=== PATIENT | male | born 1935 | race Caucasian/White ===

== ENCOUNTER 2018-04-25 10:53 | Inpatient (IN) | payer OTHER ==
[~2018-04-25] VITALS: Ht 177.8 cm; Wt 62.7 kg
[2018-04-25 12:08] LABS: Hematocrit 32.8 % (41.0-53.0); Hemoglobin 11.1 g/dL (13.5-17.5); Mean Corpuscular Hemoglobin 32.3 pg (28.0-32.0); Mean Corpuscular Hgb Conc. 33.8 g/dL (32.0-36.0); Mean Corpuscular Volume 95.6 fL (80.0-100.0); Platelet Count (auto) 271 10^3/uL (140-450); Red Blood Cells 3.43 10^6/uL (4.5-5.90); Red Cell Distribution Width 16.6 % (11.8-14.3); White Blood Cell 5.8 10^3/uL (4.4-10.8)
[2018-04-25 12:12] LABS: Basophils % (manual) 0 (0.0-2.0); Blast Cells 0; Eosinophils % (manual) 0 (0-7); Metamyelocytes % 0; Myelocytes % 0; Promyelocytes % 0; Reactive Lymphocytes 0
[2018-04-25 12:24] LABS: Band Neutrophils % (manual) 1; Lymphocytes % (manual) 16 (10.0-50.0); Monocytes % (manual) 16 (0-12)
[2018-04-25 12:43] LABS: Alanine Aminotransferase 204 U/L (16-61); Albumin 2.7 g/dL (3.4-5.0); Alkaline Phosphatase 1062 U/L (45-117); Anion Gap 10 (5-15); Aspartate Aminotransferase 205 U/L (15-37); BUN/Creatinine Ratio 16.4; Bilirubin, Total 29.8 mg/dL (0.2-1.0); Blood Urea Nitrogen 21 mg/dL (7-18); Carbon Dioxide 21 mmol/L (21-32); Chloride 102 mmol/L (98-107); GFR African American 69 mL/min; GFR Non-African American 57 mL/min; Glucose 88 mg/dL (74-106); Magnesium 2.6 mg/dL (1.6-2.6); Potassium 3.7 mmol/L (3.5-5.1); Sodium 133 mmol/L (136-145)
[2018-04-25 13:05] LABS: Total Protein 6.5 g/dL (6.4-8.2)
[2018-04-25] MEDS ORDERED: LEVOFLOXACIN 500MG 100 ML IV ONE (13:30)
[2018-04-25] MEDS ORDERED: ALBUTEROL SULF 2.5 MG/0.5ML(0.5%) NEB SOLN NEB PRN (15:00)
[2018-04-25] MEDS ORDERED: LACTULOSE 20Gm/30ML SOLN PO PRN (15:00)
[2018-04-25] MEDS ORDERED: LORazepam 0.5 MG TAB PO PRN (15:00)
[2018-04-25] MEDS ORDERED: ONDANSETRON HCL 4 MG/2 ML VIAL IV PRN (15:00)
[2018-04-25] MEDS ORDERED: NITROGLYCERIN 0.4 MG SL TAB SL PRN (15:00)
[2018-04-25] MEDS ORDERED: MORPHINE SULFATE 4 MG/ML SYR/VIAL IV PRN (15:00)
[2018-04-25 15:26] VITALS: BP 127/72
[2018-04-25 15:31] LABS: Partial Thromboplastin Time 29.6 sec (23.78-33.04); Prothrombin Time 10.7 sec (9.27-12.13)
[2018-04-25 15:46] LABS: Amylase 19 U/L (25-115); Lipase 50 U/L (73-393)
[2018-04-25] MEDS: MORPHINE SULFATE 4 MG/ML SYR/VIAL IV PRN (16:20)
[2018-04-25 17:05] VITALS: BP 146/87
[2018-04-25 17:10] VITALS: BP 146/87
[2018-04-25] MEDS ORDERED: chlordiazePOXIDE HCL 25 MG CAP PO PRN (17:15)
[2018-04-25] MEDS ORDERED: THIAMINE 100mg/ml INJ (200mg/2ml VIAL) IV ONE (17:15)
[2018-04-25] MEDS: ALBUTEROL SULF 2.5 MG/0.5ML(0.5%) NEB SOLN NEB SCH (18:00)
[2018-04-25 21:57] VITALS: BP 149/70
[2018-04-25] MEDS: TEMAZEPAM 15 MG CAP PO PRN (22:28)
[2018-04-26] MEDS: ALBUTEROL SULF 2.5 MG/0.5ML(0.5%) NEB SOLN NEB SCH ×4 (01:00→19:32)
[2018-04-26] MEDS: MORPHINE SULFATE 4 MG/ML SYR/VIAL IV PRN ×5 (04:50→22:02)
[2018-04-26 05:25] LABS: Urine Amorphous Crystal FEW /hpf (None Seen); Urine Bacteria FEW /hpf (None Seen); Urine Blood Negative /uL (Negative); Urine Mucus FEW (None Seen); Urine Specific Gravity 1.013 (1.001-1.035); Urine WBC 2 /hpf (0 - 3)
[2018-04-26 05:44] VITALS: BP 169/90
[2018-04-26 06:10] VITALS: BP 136/82
[2018-04-26 06:37] LABS: Hematocrit 31.5 % (41.0-53.0); Hemoglobin 11.1 g/dL (13.5-17.5); Mean Corpuscular Hemoglobin 32.9 pg (28.0-32.0); Mean Corpuscular Hgb Conc. 35.1 g/dL (32.0-36.0); Mean Corpuscular Volume 93.8 fL (80.0-100.0); Platelet Count (auto) 243 10^3/uL (140-450); Red Blood Cells 3.36 10^6/uL (4.5-5.90); Red Cell Distribution Width 16.4 % (11.8-14.3); White Blood Cell 6.2 10^3/uL (4.4-10.8)
[2018-04-26 06:41] LABS: Basophils % (manual) 0 (0.0-2.0); Blast Cells 0; Eosinophils % (manual) 0 (0-7); Metamyelocytes % 0; Myelocytes % 0; Promyelocytes % 0; Reactive Lymphocytes 0
[2018-04-26 07:12] LABS: Cholesterol 384 mg/dL (< 200); HDL Cholesterol 6 mg/dL (40-59); LDL Cholesterol 399 mg/dL (< 100); Triglycerides 183 mg/dL (< 150)
[2018-04-26] MEDS: LEVOFLOXACIN 500MG 100 ML IV SCH (08:00)
[2018-04-26] MEDS: PANTOPRAZOLE 40 MG TAB PO SCH (08:00)
[2018-04-26] MEDS: THIAMINE 100mg/ml INJ (200mg/2ml VIAL) IV SCH (08:01)
[2018-04-26 08:26] LABS: Band Neutrophils % (manual) 3; Lymphocytes % (manual) 8 (10.0-50.0); Monocytes % (manual) 19 (0-12)
[2018-04-26 09:00] VITALS: BP 160/88
[2018-04-26 13:00] VITALS: BP 140/82
[2018-04-26 17:00] VITALS: BP 142/68
[2018-04-26] MEDS ORDERED: FAM20T PO (21:20)
[2018-04-26] MEDS ORDERED: DULO20CA PO (21:32)
[2018-04-26] MEDS ORDERED: TEMA15CA91 PO (21:32)
[2018-04-26] MEDS ORDERED: PERCOT PO (21:32)
[2018-04-26] MEDS ORDERED: MORP60TA25 PO (21:32)
[2018-04-26] MEDS ORDERED: ASPI81TA27 PO (21:32)
[2018-04-26] MEDS ORDERED: CELE100C82 PO (21:32)
[2018-04-26] MEDS ORDERED: TRAZ50TA2 PO (21:32)
[2018-04-26] MEDS ORDERED: SENN-152 PO (21:32)
[2018-04-26 21:48] VITALS: BP 138/61
[2018-04-26] MEDS ORDERED: AMLO5TAB13 PO (22:05)
[2018-04-26] MEDS ORDERED: FINA5TAB4 PO (22:05)
[2018-04-26] MEDS ORDERED: MAGN400T5 PO (22:05)
[2018-04-26] MEDS: TEMAZEPAM 15 MG CAP PO PRN (22:29)
[2018-04-27] MEDS: ALBUTEROL SULF 2.5 MG/0.5ML(0.5%) NEB SOLN NEB SCH ×4 (00:09→18:05)
[2018-04-27 04:57] VITALS: BP 146/75
[2018-04-27 08:20] VITALS: BP 159/77
[2018-04-27 09:28] VITALS: BP 159/77
[2018-04-27 09:46] LABS: Hepatitis B Surface Antibody Negative
[2018-04-27] MEDS: PANTOPRAZOLE 40 MG TAB PO SCH (09:49)
[2018-04-27] MEDS: THIAMINE 100mg/ml INJ (200mg/2ml VIAL) IV SCH (09:49)
[2018-04-27] MEDS: LEVOFLOXACIN 500MG 100 ML IV SCH (09:49)
[2018-04-27 10:22] LABS: Hepatitis A Total Antibody Negative
[2018-04-27 11:35] VITALS: BP 154/76
[2018-04-27 11:49] LABS: Hepatitis C Antibody Negative (Negative)
[2018-04-27 11:54] LABS: Hepatitis B Core Total AB Negative
[2018-04-27] MEDS ORDERED: amLODIPine BESYLATE 5 MG TAB PO ONE (13:00)
[2018-04-27] MEDS: traMADol HCL 50 MG TAB PO PRN ×2 (13:40→20:25)
[2018-04-27] MEDS: SODIUM CHLORIDE 0.9% 1,000 ML IV SCH (13:41)
[2018-04-27 15:11] LABS: Albumin 2.2 g/dL (3.4-5.0); BUN/Creatinine Ratio 11.8; Calcium 9.1 mg/dL (8.5-10.1)
[2018-04-27 15:23] LABS: Bilirubin, Total 30.4 mg/dL (0.2-1.0)
[2018-04-27] MEDS ORDERED: IOHEXOL 300 MG/ML 100ML BOTTLE IJ ONE (15:36)
[2018-04-27 15:56] LABS: Total Protein 6.1 g/dL (6.4-8.2)
[2018-04-27 16:28] VITALS: BP 154/77
[2018-04-27] MEDS: HYDROmorphone HCL 2 MG/ML VL IV PRN (18:06)
[2018-04-27 20:47] LABS: Hepatitis B Surface Antigen Negative (Negative)
[2018-04-27 22:00] VITALS: BP 144/67
[2018-04-27] MEDS: TEMAZEPAM 15 MG CAP PO PRN (22:21)
[2018-04-28] VITALS (7 sets, daily range): BP systolic 129–155; BP diastolic 76–81
[2018-04-28] MEDS: HYDROmorphone HCL 2 MG/ML VL IV PRN ×3 (00:08→21:56)
[2018-04-28] MEDS: traMADol HCL 50 MG TAB PO PRN ×3 (03:52→17:03)
[2018-04-28 05:45] LABS: Hemoglobin 10.5 g/dL (13.5-17.5); Mean Corpuscular Hemoglobin 32.7 pg (28.0-32.0); Mean Corpuscular Hgb Conc. 35.1 g/dL (32.0-36.0); Platelet Count (auto) 271 10^3/uL (140-450); Red Blood Cells 3.23 10^6/uL (4.5-5.90); Red Cell Distribution Width 17.1 % (11.8-14.3); White Blood Cell 7.3 10^3/uL (4.4-10.8)
[2018-04-28 05:48] LABS: Basophils % (manual) 0 (0.0-2.0); Blast Cells 0; Eosinophils % (manual) 0 (0-7); Metamyelocytes % 0; Myelocytes % 0; Promyelocytes % 0; Reactive Lymphocytes 0
[2018-04-28 06:00] LABS: Albumin 2.1 g/dL (3.4-5.0); BUN/Creatinine Ratio 14.4; Calcium 8.5 mg/dL (8.5-10.1); Potassium 3.2 mmol/L (3.5-5.1)
[2018-04-28 06:15] LABS: Bilirubin, Total 28.4 mg/dL (0.2-1.0)
[2018-04-28 06:25] LABS: Band Neutrophils % (manual) 3; Lymphocytes % (manual) 7 (10.0-50.0); Monocytes % (manual) 13 (0-12)
[2018-04-28 06:36] LABS: Total Protein 5.4 g/dL (6.4-8.2)
[2018-04-28] MEDS: SODIUM CHLORIDE 0.9% 1,000 ML IV SCH (07:02)
[2018-04-28] MEDS: ALBUTEROL SULF 2.5 MG/0.5ML(0.5%) NEB SOLN NEB SCH ×4 (07:11→19:18)
[2018-04-28] MEDS: PANTOPRAZOLE 40 MG TAB PO SCH (09:12)
[2018-04-28] MEDS: THIAMINE 100mg/ml INJ (200mg/2ml VIAL) IV SCH (09:13)
[2018-04-28] MEDS: amLODIPine BESYLATE 5 MG TAB PO SCH (09:13)
[2018-04-28] MEDS: LEVOFLOXACIN 500MG 100 ML IV SCH (09:17)
[2018-04-28] MEDS ORDERED: METOCLOPRAMIDE HCL 5MG/ml INJ 2ml VIAL IV ONE (10:45)
[2018-04-28] MEDS ORDERED: POTASSIUM CHL 20 Meq TABLET PO ONE (11:30)
[2018-04-28 13:42] LABS: INR 1.04 (0.9-1.15); Partial Thromboplastin Time 29.1 sec (23.78-33.04); Prothrombin Time 11.1 sec (9.27-12.13)
[2018-04-28] MEDS ORDERED: IOHEXOL 300 MG/ML 100ML BOTTLE IJ ONE (14:24)
[2018-04-28] MEDS: TEMAZEPAM 15 MG CAP PO PRN (22:39)
[2018-04-29] MEDS: ALBUTEROL SULF 2.5 MG/0.5ML(0.5%) NEB SOLN NEB SCH ×4 (00:01→19:36)
[2018-04-29] MEDS: SODIUM CHLORIDE 0.9% 1,000 ML IV SCH ×3 (00:10→18:30)
[2018-04-29 05:00] VITALS: BP 140/79
[2018-04-29 06:48] LABS: Albumin 2.1 g/dL (3.4-5.0); Calcium 8.6 mg/dL (8.5-10.1); Potassium 3.1 mmol/L (3.5-5.1)
[2018-04-29 07:05] LABS: Bilirubin, Total 29.1 mg/dL (0.2-1.0)
[2018-04-29 07:21] LABS: Total Protein 5.4 g/dL (6.4-8.2)
[2018-04-29 09:00] VITALS: BP 140/71
[2018-04-29] MEDS: PANTOPRAZOLE 40 MG TAB PO SCH (10:00)
[2018-04-29] MEDS: THIAMINE 100mg/ml INJ (200mg/2ml VIAL) IV SCH (10:46)
[2018-04-29] MEDS: LEVOFLOXACIN 500MG 100 ML IV SCH (10:46)
[2018-04-29] MEDS: amLODIPine BESYLATE 5 MG TAB PO SCH (10:47)
[2018-04-29] MEDS ORDERED: POTASSIUM CHL 20 Meq TABLET PO ONE (11:15)
[2018-04-29 13:00] VITALS: BP 153/84
[2018-04-29] MEDS: traMADol HCL 50 MG TAB PO PRN (13:59)
[2018-04-29 16:52] VITALS: BP 153/72
[2018-04-29] MEDS: HYDROmorphone HCL 2 MG/ML VL IV PRN ×2 (17:32→21:31)
[2018-04-29 22:00] VITALS: BP 148/70
[2018-04-29] MEDS: TEMAZEPAM 15 MG CAP PO PRN (22:47)
[2018-04-30] MEDS: ALBUTEROL SULF 2.5 MG/0.5ML(0.5%) NEB SOLN NEB SCH ×4 (01:24→18:39)
[2018-04-30 04:00] VITALS: BP 140/77
[2018-04-30] MEDS: SODIUM CHLORIDE 0.9% 1,000 ML IV SCH ×2 (04:39→13:36)
[2018-04-30] MEDS: HYDROmorphone HCL 2 MG/ML VL IV PRN ×4 (04:41→23:27)
[2018-04-30 05:35] LABS: Hematocrit 32.2 % (41.0-53.0); Hemoglobin 11.3 g/dL (13.5-17.5); Mean Corpuscular Hgb Conc. 35.2 g/dL (32.0-36.0); Mean Corpuscular Volume 93.8 fL (80.0-100.0); Platelet Count (auto) 254 10^3/uL (140-450); Red Blood Cells 3.44 10^6/uL (4.5-5.90); Red Cell Distribution Width 17.4 % (11.8-14.3); White Blood Cell 6.6 10^3/uL (4.4-10.8)
[2018-04-30 05:43] LABS: Basophils % (manual) 0 (0.0-2.0); Blast Cells 0; Promyelocytes % 0; Reactive Lymphocytes 0
[2018-04-30 05:59] LABS: Albumin 2.3 g/dL (3.4-5.0); Bilirubin, Total 31.8 mg/dL (0.2-1.0); Potassium 3.2 mmol/L (3.5-5.1)
[2018-04-30 06:07] LABS: Band Neutrophils % (manual) 2; Metamyelocytes % 2; Monocytes % (manual) 12 (0-12); Myelocytes % 2
[2018-04-30 06:08] LABS: Eosinophils % (manual) 2 (0-7); Lymphocytes % (manual) 13 (10.0-50.0)
[2018-04-30] MEDS ORDERED: SODIUM CHLORIDE 0.9 % NEB SOLN 3ML NEB ONE (06:35)
[2018-04-30 07:42] LABS: Total Protein 5.8 g/dL (6.4-8.2)
[2018-04-30 08:57] VITALS: BP 155/69
[2018-04-30] MEDS: THIAMINE 100mg/ml INJ (200mg/2ml VIAL) IV SCH (09:40)
[2018-04-30] MEDS: traMADol HCL 50 MG TAB PO PRN (09:41)
[2018-04-30] MEDS: LEVOFLOXACIN 500MG 100 ML IV SCH (09:41)
[2018-04-30] MEDS: PANTOPRAZOLE 40 MG TAB PO SCH (09:42)
[2018-04-30] MEDS: amLODIPine BESYLATE 5 MG TAB PO SCH (09:42)
[2018-04-30] MEDS: POTASSIUM CHL 20MEQ/100ML 100 ML IV SCH ×2 (11:13→13:20)
[2018-04-30 12:52] VITALS: BP 142/69
[2018-04-30] MEDS: DEXAMETHASONE INJECTION 10 MG in D5W 5% 50 ML IV SCH (13:20)
[2018-04-30 16:58] VITALS: BP 152/90
[2018-04-30] MEDS: TEMAZEPAM 15 MG CAP PO PRN (21:14)
[2018-04-30 21:52] VITALS: BP 125/76
[2018-05-01] MEDS: ALBUTEROL SULF 2.5 MG/0.5ML(0.5%) NEB SOLN NEB SCH ×4 (00:26→19:02)
[2018-05-01] MEDS: SODIUM CHLORIDE 0.9% 1,000 ML IV SCH ×2 (00:43→10:59)
[2018-05-01 05:00] VITALS: BP 146/82
[2018-05-01] MEDS: HYDROmorphone HCL 2 MG/ML VL IV PRN ×2 (05:55→20:49)
[2018-05-01] MEDS ORDERED: IOHEXOL 300 MG/ML 100ML BOTTLE IJ ONE (06:38)
[2018-05-01 06:44] LABS: Albumin 2.1 g/dL (3.4-5.0); Calcium 8.2 mg/dL (8.5-10.1); Potassium 3.3 mmol/L (3.5-5.1)
[2018-05-01 06:47] LABS: BUN/Creatinine Ratio 12.2
[2018-05-01 06:59] LABS: Bilirubin, Total 30.8 mg/dL (0.2-1.0); Total Protein 5.4 g/dL (6.4-8.2)
[2018-05-01] MEDS ORDERED: PROPOFOL 10 MG/ML 20 ML IV ONE (07:24)
[2018-05-01] MEDS ORDERED: fentaNYL CITRATE 100 MCG/2 ML VL ONE ×2 (07:24→14:38)
[2018-05-01] MEDS ORDERED: DEXAMETHASONE SOD PHOS 10MG/1ML VIAL INJ ONE (07:24)
[2018-05-01] MEDS ORDERED: MIDAZOLAM HCL 1MG/1ML-2 ML VIAL ONE ×2 (07:24→14:39)
[2018-05-01] MEDS ORDERED: MEPERIDINE HCL (50 MG/ML) 1 ML VIAL ONE (07:24)
[2018-05-01] MEDS ORDERED: ETOMIDATE (2MG/ML) 20ML VIAL IV ONE (07:25)
[2018-05-01] MEDS ORDERED: ONDANSETRON HCL 4 MG/2 ML VIAL IV ONE (07:45)
[2018-05-01] MEDS ORDERED: ePHEDrine SULFATE 50 MG/ML AMP IV PRN (07:45)
[2018-05-01] MEDS ORDERED: HYDROmorphone HCL 2 MG/ML VL IV PRN (07:45)
[2018-05-01] MEDS ORDERED: MORPHINE SULFATE 4 MG/ML SYR/VIAL IV PRN (07:45)
[2018-05-01] MEDS ORDERED: KETOROLAC TROMETH 30 MG/ML 1ML VIAL IV ONE (07:45)
[2018-05-01] MEDS ORDERED: MIDAZOLAM HCL 1MG/1ML-2 ML VIAL IV PRN (07:45)
[2018-05-01] MEDS ORDERED: SUCCINYLCHOLINE CHLORIDE 20 MG/ML 10ML VIAL IV ONE (07:48)
[2018-05-01] MEDS ORDERED: MORPHINE SULFATE 4 MG/ML SYR/VIAL IV ONE (08:00)
[2018-05-01] MEDS: PANTOPRAZOLE 40 MG TAB PO SCH (10:00)
[2018-05-01] MEDS: LEVOFLOXACIN 500MG 100 ML IV SCH (10:56)
[2018-05-01] MEDS: THIAMINE 100mg/ml INJ (200mg/2ml VIAL) IV SCH (10:57)
[2018-05-01] MEDS: amLODIPine BESYLATE 5 MG TAB PO SCH (10:57)
[2018-05-01] MEDS: DEXAMETHASONE INJECTION 10 MG in D5W 5% 50 ML IV SCH (10:57)
[2018-05-01] MEDS: SOD CHL 0.9%/ KCL 20MEQ 1,000 ML IV SCH ×2 (11:34→20:48)
[2018-05-01 13:00] VITALS: BP 152/56
[2018-05-01] MEDS ORDERED: LIDOCAINE 2% (LOCAL ANESTH.) PF 5ml SDV ONE (14:35)
[2018-05-01] MEDS ORDERED: IOHEXOL 350 MG/ML 100ML IJ ONE (14:36)
[2018-05-01] MEDS ORDERED: LABETALOL HCL 5 MG/ML ML 20ML VIAL IV ONE (15:38)
[2018-05-01] MEDS: LABETALOL HCL 5 MG/ML 4ML SYRINGE IV PRN ×3 (16:30→21:24)
[2018-05-01 21:29] VITALS: BP 164/83
[2018-05-01] MEDS: TEMAZEPAM 15 MG CAP PO PRN (22:00)
[2018-05-02] MEDS: ALBUTEROL SULF 2.5 MG/0.5ML(0.5%) NEB SOLN NEB SCH ×4 (00:27→19:05)
[2018-05-02] MEDS: HYDROmorphone HCL 2 MG/ML VL IV PRN ×4 (01:23→15:39)
[2018-05-02 05:13] VITALS: BP 146/73
[2018-05-02 07:51] LABS: Hematocrit 36.2 % (41.0-53.0); Hemoglobin 12.6 g/dL (13.5-17.5); Mean Corpuscular Hemoglobin 32.3 pg (28.0-32.0); Mean Corpuscular Hgb Conc. 34.7 g/dL (32.0-36.0); Mean Corpuscular Volume 93.1 fL (80.0-100.0); Platelet Count (auto) 318 10^3/uL (140-450); Red Blood Cells 3.89 10^6/uL (4.5-5.90); Red Cell Distribution Width 18.1 % (11.8-14.3); White Blood Cell 15.1 10^3/uL (4.4-10.8)
[2018-05-02 07:58] LABS: Albumin 2.2 g/dL (3.4-5.0); BUN/Creatinine Ratio 16.7; Bilirubin, Total 27.8 mg/dL (0.2-1.0); Calcium 8.5 mg/dL (8.5-10.1); Total Protein 5.6 g/dL (6.4-8.2)
[2018-05-02 08:09] LABS: Basophils % (manual) 0 (0.0-2.0); Blast Cells 0; Metamyelocytes % 0; Myelocytes % 0; Promyelocytes % 0; Reactive Lymphocytes 0
[2018-05-02 09:00] VITALS: BP 121/62
[2018-05-02 09:06] LABS: Band Neutrophils % (manual) 2; Eosinophils % (manual) 1 (0-7); Lymphocytes % (manual) 7 (10.0-50.0); Monocytes % (manual) 10 (0-12)
[2018-05-02] MEDS: THIAMINE 100mg/ml INJ (200mg/2ml VIAL) IV SCH (10:57)
[2018-05-02] MEDS: LEVOFLOXACIN 500MG 100 ML IV SCH (10:57)
[2018-05-02] MEDS: amLODIPine BESYLATE 5 MG TAB PO SCH (10:58)
[2018-05-02] MEDS: SOD CHL 0.9%/ KCL 20MEQ 1,000 ML IV SCH ×2 (10:58→17:15)
[2018-05-02] MEDS: PANTOPRAZOLE 40 MG TAB PO SCH (10:58)
[2018-05-02 13:00] VITALS: BP 155/62
[2018-05-02] MEDS: DEXAMETHASONE INJECTION 10 MG in D5W 5% 50 ML IV SCH (13:04)
[2018-05-02] MEDS ORDERED: cefTRIAXone 1GM/10ml IVPUSH 10 ML IV ONE (16:00)
[2018-05-02] MEDS ORDERED: MORPHINE SULFATE 4 MG/ML SYR/VIAL IV PRN (16:00)
[2018-05-02] MEDS ORDERED: chlordiazePOXIDE HCL 25 MG CAP PO PRN (16:00)
[2018-05-02 17:00] VITALS: BP 150/80
[2018-05-02 17:04] LABS: Amylase 889 U/L (25-115); Lipase 8160 U/L (73-393)
[2018-05-02] MEDS: metroNIDAZOLE 500MG/100ML 100 ML IV SCH (19:00)
[2018-05-02 22:00] VITALS: BP 159/88
[2018-05-02] MEDS: TEMAZEPAM 15 MG CAP PO PRN (22:39)
[2018-05-03] MEDS: metroNIDAZOLE 500MG/100ML 100 ML IV SCH ×4 (00:05→18:17)
[2018-05-03] MEDS: SOD CHL 0.9%/ KCL 20MEQ 1,000 ML IV SCH ×2 (03:00→13:15)
[2018-05-03 05:00] VITALS: BP 168/92
[2018-05-03 05:23] LABS: Hematocrit 31.7 % (41.0-53.0); Hemoglobin 11.5 g/dL (13.5-17.5); Mean Corpuscular Hemoglobin 33.7 pg (28.0-32.0); Mean Corpuscular Hgb Conc. 36.2 g/dL (32.0-36.0); Mean Corpuscular Volume 93.1 fL (80.0-100.0); Platelet Count (auto) 249 10^3/uL (140-450); Red Cell Distribution Width 17.3 % (11.8-14.3); White Blood Cell 14.5 10^3/uL (4.4-10.8)
[2018-05-03 05:37] LABS: Basophils % (manual) 0 (0.0-2.0); Blast Cells 0; Eosinophils % (manual) 0 (0-7); Metamyelocytes % 0; Myelocytes % 0; Promyelocytes % 0; Reactive Lymphocytes 0
[2018-05-03 05:40] LABS: Potassium 3.1 mmol/L (3.5-5.1)
[2018-05-03 05:53] LABS: Bilirubin, Total 23.3 mg/dL (0.2-1.0); Total Protein 5.5 g/dL (6.4-8.2)
[2018-05-03] MEDS: ALBUTEROL SULF 2.5 MG/0.5ML(0.5%) NEB SOLN NEB SCH ×4 (06:00→18:41)
[2018-05-03 06:25] LABS: Band Neutrophils % (manual) 3; Lymphocytes % (manual) 9 (10.0-50.0)
[2018-05-03 06:30] LABS: Monocytes % (manual) 3 (0-12)
[2018-05-03 08:47] VITALS: BP 156/96
[2018-05-03] MEDS: THIAMINE 100mg/ml INJ (200mg/2ml VIAL) IV SCH (09:42)
[2018-05-03] MEDS: cefTRIAXone 1GM/10ml IVPUSH 10 ML IV SCH (09:42)
[2018-05-03] MEDS: PANTOPRAZOLE 40 MG TAB PO SCH (09:43)
[2018-05-03] MEDS: amLODIPine BESYLATE 5 MG TAB PO SCH (09:43)
[2018-05-03] MEDS: DEXAMETHASONE INJECTION 10 MG in D5W 5% 50 ML IV SCH (09:43)
[2018-05-03] MEDS: HYDROmorphone HCL 2 MG/ML VL IV PRN ×2 (10:06→15:17)
[2018-05-03 12:51] VITALS: BP 160/82
[2018-05-03] MEDS ORDERED: LABETALOL HCL 5 MG/ML ML 20ML VIAL IV PRN (15:15)
[2018-05-03 16:57] VITALS: BP 155/82
[2018-05-03 22:00] VITALS: BP 144/80
[2018-05-03] MEDS: TEMAZEPAM 15 MG CAP PO PRN (22:12)
[2018-05-04] VITALS (7 sets, daily range): BP systolic 132–172; BP diastolic 75–83
[2018-05-04] MEDS: metroNIDAZOLE 500MG/100ML 100 ML IV SCH ×4 (00:03→18:08)
[2018-05-04] MEDS: SOD CHL 0.9%/ KCL 20MEQ 1,000 ML IV SCH ×3 (00:03→22:37)
[2018-05-04] MEDS: ALBUTEROL SULF 2.5 MG/0.5ML(0.5%) NEB SOLN NEB SCH ×4 (06:18→19:08)
[2018-05-04 06:22] LABS: Hematocrit 31.6 % (41.0-53.0); Hemoglobin 10.7 g/dL (13.5-17.5); Mean Corpuscular Hemoglobin 31.8 pg (28.0-32.0); Mean Corpuscular Hgb Conc. 33.7 g/dL (32.0-36.0); Mean Corpuscular Volume 94.5 fL (80.0-100.0); Platelet Count (auto) 273 10^3/uL (140-450); Red Blood Cells 3.35 10^6/uL (4.5-5.90); Red Cell Distribution Width 17.7 % (11.8-14.3); White Blood Cell 15.4 10^3/uL (4.4-10.8)
[2018-05-04 06:23] LABS: Basophils % (manual) 0 (0.0-2.0); Blast Cells 0; Eosinophils % (manual) 0 (0-7); Metamyelocytes % 0; Myelocytes % 0; Promyelocytes % 0; Reactive Lymphocytes 0
[2018-05-04 06:57] LABS: Amylase 402 U/L (25-115); Lipase 3030 U/L (73-393)
[2018-05-04 07:01] LABS: Albumin 2.2 g/dL (3.4-5.0); BUN/Creatinine Ratio 26.8; Bilirubin, Total 18.1 mg/dL (0.2-1.0); Calcium 8.1 mg/dL (8.5-10.1); Total Protein 5.6 g/dL (6.4-8.2)
[2018-05-04 07:31] LABS: Potassium 2.8 mmol/L (3.5-5.1)
[2018-05-04] MEDS ORDERED: POTASSIUM CHL 20 Meq TABLET PO ONE (08:00)
[2018-05-04 08:19] LABS: Band Neutrophils % (manual) 2; Lymphocytes % (manual) 5 (10.0-50.0); Monocytes % (manual) 3 (0-12)
[2018-05-04] MEDS: DEXAMETHASONE INJECTION 10 MG in D5W 5% 50 ML IV SCH (09:44)
[2018-05-04] MEDS: THIAMINE 100mg/ml INJ (200mg/2ml VIAL) IV SCH (09:44)
[2018-05-04] MEDS: cefTRIAXone 1GM/10ml IVPUSH 10 ML IV SCH (09:44)
[2018-05-04] MEDS: amLODIPine BESYLATE 5 MG TAB PO SCH (09:45)
[2018-05-04] MEDS: PANTOPRAZOLE 40 MG TAB PO SCH (09:45)
[2018-05-04] MEDS ORDERED: IOHEXOL 300 MG/ML 100ML BOTTLE IJ ONE (13:03)
[2018-05-04 13:28] LABS: % Iron Saturation 54.1 % (20-55)
[2018-05-04 13:39] LABS: Ferritin 688.1 ng/mL (10-322)
[2018-05-04 13:40] LABS: Folate (Folic Acid) 13.83 ng/mL (5.38-24)
[2018-05-04] MEDS: traMADol HCL 50 MG TAB PO PRN (15:22)
[2018-05-04] MEDS: TEMAZEPAM 15 MG CAP PO PRN (22:37)
[2018-05-05] MEDS: ALBUTEROL SULF 2.5 MG/0.5ML(0.5%) NEB SOLN NEB SCH ×4 (00:34→18:45)
[2018-05-05] MEDS: metroNIDAZOLE 500MG/100ML 100 ML IV SCH ×5 (01:13→23:28)
[2018-05-05 05:00] VITALS: BP 138/56
[2018-05-05] MEDS: SOD CHL 0.9%/ KCL 20MEQ 1,000 ML IV SCH ×4 (05:15→23:27)
[2018-05-05 06:29] LABS: Hematocrit 28.8 % (41.0-53.0); Hemoglobin 9.7 g/dL (13.5-17.5); Mean Corpuscular Hemoglobin 31.9 pg (28.0-32.0); Mean Corpuscular Hgb Conc. 33.8 g/dL (32.0-36.0); Mean Corpuscular Volume 94.3 fL (80.0-100.0); Platelet Count (auto) 271 10^3/uL (140-450); Red Blood Cells 3.05 10^6/uL (4.5-5.90); Red Cell Distribution Width 17.2 % (11.8-14.3); White Blood Cell 15.1 10^3/uL (4.4-10.8)
[2018-05-05 06:33] LABS: Band Neutrophils % (manual) 0; Basophils % (manual) 0 (0.0-2.0); Blast Cells 0; Eosinophils % (manual) 0 (0-7); Metamyelocytes % 0; Myelocytes % 0; Promyelocytes % 0; Reactive Lymphocytes 0
[2018-05-05 06:53] LABS: Albumin 2.1 g/dL (3.4-5.0); BUN/Creatinine Ratio 24.6; Calcium 8.1 mg/dL (8.5-10.1); Potassium 3.1 mmol/L (3.5-5.1); Total Protein 5.5 g/dL (6.4-8.2)
[2018-05-05 07:43] LABS: Lymphocytes % (manual) 5 (10.0-50.0); Monocytes % (manual) 4 (0-12)
[2018-05-05 08:00] VITALS: BP 146/75
[2018-05-05] MEDS: amLODIPine BESYLATE 5 MG TAB PO SCH (09:03)
[2018-05-05] MEDS: THIAMINE 100mg/ml INJ (200mg/2ml VIAL) IV SCH (09:03)
[2018-05-05] MEDS: PANTOPRAZOLE 40 MG TAB PO SCH (09:03)
[2018-05-05] MEDS: cefTRIAXone 1GM/10ml IVPUSH 10 ML IV SCH (09:04)
[2018-05-05] MEDS ORDERED: POTASSIUM CHL 20 Meq TABLET PO ONE (10:00)
[2018-05-05 12:00] VITALS: BP 128/66
[2018-05-05] MEDS: traMADol HCL 50 MG TAB PO PRN (13:54)
[2018-05-05 17:00] VITALS: BP 145/73
[2018-05-05] MEDS: HYDROmorphone HCL 2 MG/ML VL IV PRN (17:46)
[2018-05-05] MEDS: TEMAZEPAM 15 MG CAP PO PRN (21:43)
[2018-05-05 21:54] VITALS: BP 118/68
[2018-05-06] MEDS: HYDROmorphone HCL 2 MG/ML VL IV PRN ×2 (03:45→20:57)
[2018-05-06 05:21] VITALS: BP 117/65
[2018-05-06] MEDS: metroNIDAZOLE 500MG/100ML 100 ML IV SCH (05:58)
[2018-05-06 06:15] LABS: Hematocrit 27.6 % (41.0-53.0); Hemoglobin 9.4 g/dL (13.5-17.5); Mean Corpuscular Hemoglobin 33.1 pg (28.0-32.0); Mean Corpuscular Hgb Conc. 34.2 g/dL (32.0-36.0); Mean Corpuscular Volume 96.8 fL (80.0-100.0); Platelet Count (auto) 242 10^3/uL (140-450); Red Blood Cells 2.86 10^6/uL (4.5-5.90); Red Cell Distribution Width 16.8 % (11.8-14.3); White Blood Cell 11.7 10^3/uL (4.4-10.8)
[2018-05-06] MEDS: ALBUTEROL SULF 2.5 MG/0.5ML(0.5%) NEB SOLN NEB SCH ×4 (06:17→18:45)
[2018-05-06 06:18] LABS: Basophils % (manual) 0 (0.0-2.0); Blast Cells 0; Promyelocytes % 0; Reactive Lymphocytes 0
[2018-05-06 06:37] LABS: Albumin 1.9 g/dL (3.4-5.0); Calcium 7.8 mg/dL (8.5-10.1); Potassium 4.1 mmol/L (3.5-5.1)
[2018-05-06 06:40] LABS: BUN/Creatinine Ratio 23.8
[2018-05-06 06:42] LABS: Bilirubin, Total 13.7 mg/dL (0.2-1.0); Total Protein 5.3 g/dL (6.4-8.2)
[2018-05-06 07:49] LABS: Band Neutrophils % (manual) 1; Eosinophils % (manual) 1 (0-7); Lymphocytes % (manual) 11 (10.0-50.0); Metamyelocytes % 1; Monocytes % (manual) 10 (0-12); Myelocytes % 2
[2018-05-06 08:31] VITALS: BP 138/75
[2018-05-06] MEDS: PANTOPRAZOLE 40 MG TAB PO SCH (08:33)
[2018-05-06] MEDS: amLODIPine BESYLATE 5 MG TAB PO SCH (08:33)
[2018-05-06] MEDS: THIAMINE HCL 100 MG TAB PO SCH (08:34)
[2018-05-06] MEDS: cefTRIAXone 1GM/10ml IVPUSH 10 ML IV SCH (08:35)
[2018-05-06 13:00] VITALS: BP 131/75
[2018-05-06] MEDS: metroNIDAZOLE 500 MG TAB PO SCH ×2 (13:36→22:17)
[2018-05-06 16:35] VITALS: BP 131/71
[2018-05-06] MEDS: traMADol HCL 50 MG TAB PO PRN (17:14)
[2018-05-06 22:00] VITALS: BP 123/66
[2018-05-06] MEDS: TEMAZEPAM 15 MG CAP PO PRN (22:17)
[2018-05-07] MEDS: ALBUTEROL SULF 2.5 MG/0.5ML(0.5%) NEB SOLN NEB SCH ×4 (00:32→18:59)
[2018-05-07] MEDS ORDERED: SODIUM CHLORIDE 0.9 % NEB SOLN 3ML NEB ONE (05:14)
[2018-05-07 05:24] VITALS: BP 137/72
[2018-05-07] MEDS: metroNIDAZOLE 500 MG TAB PO SCH ×3 (06:09→22:01)
[2018-05-07 08:16] LABS: Albumin 1.9 g/dL (3.4-5.0); BUN/Creatinine Ratio 19.5; Bilirubin, Total 12.2 mg/dL (0.2-1.0); Calcium 7.9 mg/dL (8.5-10.1); Potassium 3.2 mmol/L (3.5-5.1); Total Protein 5.4 g/dL (6.4-8.2)
[2018-05-07 09:13] VITALS: BP 135/78
[2018-05-07] MEDS: cefTRIAXone 1GM/10ml IVPUSH 10 ML IV SCH (10:01)
[2018-05-07] MEDS: THIAMINE HCL 100 MG TAB PO SCH (10:02)
[2018-05-07] MEDS: PANTOPRAZOLE 40 MG TAB PO SCH (10:02)
[2018-05-07] MEDS: amLODIPine BESYLATE 5 MG TAB PO SCH (10:03)
[2018-05-07] MEDS ORDERED: traMADol HCL 50 MG TAB PO PRN (12:30)
[2018-05-07] MEDS ORDERED: MORPHINE SULFATE 4 MG/ML SYR/VIAL IV PRN (12:30)
[2018-05-07 13:54] VITALS: BP 120/69
[2018-05-07 17:00] VITALS: BP 124/73
[2018-05-07] MEDS: HYDROmorphone HCL 2 MG/ML VL IV PRN ×2 (17:57→22:12)
[2018-05-07 21:30] VITALS: BP 118/62
[2018-05-07] MEDS: TEMAZEPAM 15 MG CAP PO PRN (22:01)
[2018-05-08] MEDS: ALBUTEROL SULF 2.5 MG/0.5ML(0.5%) NEB SOLN NEB SCH ×3 (01:11→11:25)
[2018-05-08 05:00] VITALS: BP 128/65
[2018-05-08] MEDS: HYDROmorphone HCL 2 MG/ML VL IV PRN (05:30)
[2018-05-08] MEDS: metroNIDAZOLE 500 MG TAB PO SCH (06:25)
[2018-05-08 08:00] VITALS: BP 134/59
[2018-05-08 08:48] VITALS: BP 134/59
[2018-05-08] MEDS: cefTRIAXone 1GM/10ml IVPUSH 10 ML IV SCH (10:00)
[2018-05-08] MEDS: amLODIPine BESYLATE 5 MG TAB PO SCH (10:01)
[2018-05-08] MEDS: THIAMINE HCL 100 MG TAB PO SCH (10:01)
[2018-05-08] MEDS: PANTOPRAZOLE 40 MG TAB PO SCH (10:01)
[2018-05-08 13:00] VITALS: BP 140/55
[2018-05-08 13:48] VITALS: BP 134/59
== END 2018-05-08 16:00 | disposition hospice, home (50) | DRG 435 ==
LOC: ER 10:53 → TELE 10:54 → TELE-WESTW 17:07 → TELE-EAST 05-02 05:57 → EAST 05-05 19:37
PROVIDERS: ADMIT Internal Medicine; ATTEND Internal Medicine
PROC: BF101ZZ Fluoroscopy of Bile Ducts using Low Osmolar Contrast (ICD-10-PCS; 2018-05-01)
PROC: 0F9930Z Drainage of Common Bile Duct with Drainage Device, Percutaneous Approach (ICD-10-PCS; 2018-05-01)
PROC: 0FJB8ZZ Inspection of Hepatobiliary Duct, Via Natural or Artificial Opening Endoscopic (ICD-10-PCS; principal; 2018-05-01 07:45)
DX: C22.1 Intrahepatic bile duct carcinoma (principal); K83.1 Obstruction of bile duct; K85.90 Acute pancreatitis without necrosis or infection, unspecified; E43 Unspecified severe protein-calorie malnutrition; J18.9 Pneumonia, unspecified organism; M48.56XA Collapsed vertebra, not elsewhere classified, lumbar region, initial encounter for fracture; M48.54XA Collapsed vertebra, not elsewhere classified, thoracic region, initial encounter for fracture; Z68.1 Body mass index [BMI] 19.9 or less, adult; K72.90 Hepatic failure, unspecified without coma; N18.3 Chronic kidney disease, stage 3 (moderate); M88.9 Osteitis deformans of unspecified bone; E78.5 Hyperlipidemia, unspecified; F17.200 Nicotine dependence, unspecified, uncomplicated; I12.9 Hypertensive chronic kidney disease with stage 1 through stage 4 chronic kidney disease, or unspecified chronic kidney disease; I67.1 Cerebral aneurysm, nonruptured; Z96.642 Presence of left artificial hip joint; F10.20 Alcohol dependence, uncomplicated; G89.29 Other chronic pain; G47.00 Insomnia, unspecified; J43.9 Emphysema, unspecified; K57.10 Diverticulosis of small intestine without perforation or abscess without bleeding; L29.9 Pruritus, unspecified; M16.0 Bilateral primary osteoarthritis of hip; Z51.5 Encounter for palliative care; Z79.899 Other long term (current) drug therapy; Z82.3 Family history of stroke; Z83.3 Family history of diabetes mellitus; Z86.79 Personal history of other diseases of the circulatory system; Z88.0 Allergy status to penicillin; Z79.82 Long term (current) use of aspirin; Z87.81 Personal history of (healed) traumatic fracture
CPT/HCPCS: 36415; 70470; 71045; 71046; 71260; 74018; 74176; 74177; 76000; 76705; 76942; 80053; 80061; 80320; 81001; 82105; 82140; 82150; 82378; 82607; 82728; 82746; 83540; 83550; 83605; 83690; 83735; 84484; 85007; 85027; 85610; 85652; 85730; 86301; 86704; 86706; 86708; 86803; 86850; 86900; 86901; 87040; 87086; 87340; 93005; 94640; 96365; 96366; 96375; 99152; A6257; J0330; J0696; J1100; J1956; J2001; J2250; J2704; J3480; J3490; J7060